=== PATIENT | female | born 1995 | race Caucasian/White ===

== ENCOUNTER 2020-08-24 08:49 | Emergency (ER) | payer BC, SELFPAY ==
[2020-08-24 09:07] VITALS: BP 145/87; PULSE 86; RESP 16; TEMP 36.5; O2SAT 100
--- NOTE | 2020-08-24 10:49 | ED.NAVMDI ---
HPI - Nausea/Vomiting/Diarrhea General Chief complaint: Nausea/Vomiting/Diarrhea Stated complaint: DIARRHEA/NAUSEA/VOMITING Time Seen by Provider: 08/24/20 09:09 Source: patient and RN notes reviewed Mode of arrival: ambulatory Limitations: no limitations History of Present Illness HPI Narrative: Patient presents today with a 4-day history of nausea, vomiting, diarrhea. Symptoms have been waxing and waning since onset, but in general, patient states she feels that her symptoms have been slowly improving. She has not vomited for 2 days. She had 3 episodes of diarrhea yesterday, but none so far today. She called her PCP and was told that there is a new strain of COVID-19 that causes severe diarrhea. They wanted her to come into urgent care to get a COVID-19 test. States her diarrhea and vomiting typically come together. Denies any blood or mucus in her stool. Denies fever. She has taken a few doses of Imodium a few days ago, but none recently. MD elicited complaint: nausea, vomiting and diarrhea Related Data Home Medications Medication Instructions Recorded Confirmed desog-e.estradiol/e.estradiol tablet 08/24/20 [Amanda (28)] dexmethylphenidate mg PO 08/24/20 losartan 08/24/20 metformin mg PO 08/24/20 spironolactone 08/24/20 Allergies Allergy/AdvReac Type Severity Reaction Status Date / Time amoxicillin Allergy Unknown HIVES/VOMIT Verified 10/07/17 14:10 ING azithromycin Allergy Unknown HEADACHE/VO Verified 10/07/17 14:10 MITING/HIVE S clavulanic acid Allergy Unknown HIVES/VOMIT Verified 10/07/17 14:10 ING Review of Systems Review of Systems: Narrative: CONSTITUTIONAL: Denies body aches, fever, chills, or sweats. EYES: Denies visual changes, redness, or discharge. ENT: Denies rhinorrhea, congestion, sore throat, or otalgia. CARDIOVASCULAR: Denies chest pain, palpitations, or edema. RESPIRATORY: Denies cough or dyspnea. GASTROINTESTINAL: Denies abdominal pain. + Nausea, vomiting, diarrhea GENITOURINARY: Denies dysuria or hematuria. SKIN: Denies rash, itching, or wounds. MUSCULOSKELETAL: Denies back pain, joint pain, or myalgia. NEUROLOGIC: Denies headache, numbness, tingling, or weakness. PSYCH: Denies depression or anxiety. [facility] Past Medical History Medical History (Updated 08/24/20 @ 10:52 by Theresa Paiz, POSTIE, ) Diabetes Hypertension Comments At time of signature, I have reviewed and agree with nursing past medical, surgical, social and family history unless otherwise noted. Please see nursing chart for further information. There is no relevant family history pertinent to the presenting complaint Exam Narrative: Exam Narrative: GENERAL: Well-appearing, well-nourished, and in no acute distress. HEAD: Normocephalic, atraumatic. EYES: EOMI. No redness or drainage. Conjunctivae normal. ENT: Mucous membranes pink and moist. Nares clear. No rhinorrhea. Throat normal. Uvula midline. NECK: Normal AROM. Supple. No lymphadenopathy. CHEST: No respiratory distress. Clear to auscultation. HEART: Regular rate and rhythm. No murmur appreciated. Normal peripheral pulses. ABDOMEN: Soft, nontender, nondistended, normal active bowel sounds. EXTREMITIES: Normal range of motion. No edema. SKIN: Warm, dry, no rash. Capillary refill normal. Normal skin turgor. NEURO: No focal deficits. Alert and oriented x3. Gait steady. PSYCH: Normal affect. No signs of depression or anxiety. Course Vital Signs Vital signs: Vital Signs Temperature 97.7 F 08/24/20 09:07 Pulse Rate 86 08/24/20 09:07 Respiratory Rate 16 08/24/20 09:07 Blood Pressure 145/87 H 08/24/20 09:07 Pulse Oximetry 100 08/24/20 09:07 Temperature 97.7 F 08/24/20 09:07 Pulse Rate 86 08/24/20 09:07 Respiratory Rate 16 08/24/20 09:07 Blood Pressure 145/87 H 08/24/20 09:07 Pulse Oximetry 100 08/24/20 09:07 Reviewed. Pt has been instructed to follow up with her PCP regarding her nargis
== END 2020-08-24 09:33 | disposition home or self-care (01) ==
PROVIDERS: Emergency Provider Nurse Practitioner
DX: R19.7 Diarrhea, unspecified (principal); R11.2 Nausea with vomiting, unspecified; Z20.822 Contact with and (suspected) exposure to COVID-19; E11.9 Type 2 diabetes mellitus without complications; I10 Essential (primary) hypertension
CPT/HCPCS: 87426; 99213; C9803; G0463